=== PATIENT | female | born 1945 | race Caucasian/White ===

== ENCOUNTER → 2016-07-17 | Outpatient (CLI) | payer MEDICARE, OTHER ==
[~2016-07-17] MED LIST: TBR.3OP51 OS
[2016-07-17 11:40] VITALS: BP 125/70
--- NOTE | 2016-07-17 11:40 | Urgent Care T Sheet Gen (E) ---
Intake General Temperature (Fahrenheit): 98.3 Pulse: 68 Blood Pressure Systolic: 125 Blood Pressure Diastolic: 70 Respirations: 20 SPO2: 98 Description of Symptoms patient presents with possible pink eye. Has been exposed by 2 grandkids. Started noticing redness and irritation to the L eye last night. Slight mattering this AM. No cough or cold symptoms. Does have seasonal allergies for which she takes daily meds. R eye is asymptomatic. Respiratory Constitutional Symptoms: No syptoms reported EENTM: Eye pain Blurred vision Eye tearing Respiratory: No symptoms reported All Other Systems Reviewed Remaining Systems: All other systems reviewed with negative findings Physical Exam Physical Exam General Appearance: WD/WN No apparent distress Eyes, Ears, Nose, Throat Ex: PERRL/EOMI (very mild redness and swelling to the L conjunctiva and upper eyelid) TMs normal Other (nose is clear) Departure Urgent Care Impression Impression: Primary Impression: Bacterial conjunctivitis of left eye Departure Disposition: HOME OR SELF-CARE Condition: Stable Referrals: CASSIE PEARCE MD (PCP) Additional Instructions: I have started the patient on Tobramycin drops Warm compress. Has an appt with PCP on Tuesday. Will recheck at that time. Patient understands DC instructions. All questions were answered. Scripts Tobramycin Sulf (Tobrex 0.3% Ophthalmic Solution)5 Ml Soln1 Drop OS QID #1 BTL 1 drop in L eye QID x 5 days Prov:GIOVANY CAPUTO 07/17/16 End of report . GIOVANY CAPUTO Jul 17, 2016 11:40
== END ==
LOC: MHUC 11:23
PROVIDERS: ATTEND Physician Assistant
DX: H10.89 Other conjunctivitis (principal)
CPT/HCPCS: 99212

== ENCOUNTER → 2016-07-20 | Outpatient (CLI) | payer MEDICARE, OTHER ==
[2016-07-20 10:03] LABS: MEAN CORPUSCULAR HEMOGLOBIN 29.8 PG (26.0-34.0); MEAN CORPUSCULAR HGB CONC 33.5 g/dL (31.0-37.0); MEAN CORPUSCULAR VOLUME 89 FL (80-100); MEAN PLATELET VOLUME 10.1 FL (6.0-9.5); WHITE BLOOD COUNT 4.13 10^3uL (4.0-11.0)
[2016-07-20 10:13] LABS: BILIRUBIN,URINE Negative (Negative); CLARITY,URINE Clear; GLUCOSE, URINE (UA) Negative (Negative); LEUKOCYTE ESTERASE ,URINE Negative (Negative); UROBILINOGEN,URINE 0.2 mg/dL (0.2-1.0)
[2016-07-20 10:21] LABS: ALBUMIN 4.5 g/dL (3.4-5.0); ANION GAP 13.7 MEQ/L (3-15); CALCULATED IONIZED CALCIUM 4.3 mg/dL (3.8-4.6); MAGNESIUM* 2.3 mg/dL (1.6-2.3); TOTAL PROTEIN 7.4 g/dL (6.4-8.5)
--- NOTE | 2016-07-20 10:23 | Diagnostic Imaging Report ---
INDICATION: Annual physical exam. DISCUSSION: Two views of the chest were obtained, comparison 07/21/2015. Underlying COPD is stable. No focal consolidation, pleural fluid, or pneumothorax. S-shaped scoliosis of the thoracolumbar spine is stable. Stable normal heart size. IMPRESSION: 1. Stable changes of COPD. Dictated by: Dictated on workstation # [id number]
[2016-07-20 10:33] LABS: PLATELET COUNT 190 10^3uL (150-450)
[2016-07-20 10:36] LABS: BAND NEUTROPHILS % 0 % (0-6); EOSINOPHILS % 10 % (0-4); LYMPHOCYTES # 1.2 #; MONOCYTES # 0.4 #; MONOCYTES % 10 % (3-11); RBC MORPH NORMAL (NORMAL); SEGMENTED NEUTROPHILS % 50 % (51-67); TOTAL CELLS COUNTED 100
[2016-07-20 10:38] LABS: COLOR,URINE Light Yellow
--- NOTE | 2016-07-20 11:14 | Diagnostic Imaging Report ---
INDICATION: Postmenopausal, screening for osteoporosis. COMPARISON: 07/14/2011. DISCUSSION: Bone mineral density measurements of the lumbar spine and distal left third radius were obtained on a [employer] DEXA scanner. Bone mineral density of the lumbar spine measures 1.213 g/cm2 which correlates to a T score of 0.1, normal. Bone mineral density of the distal left third radius measures 0.671 g/cm2 which correlates to a T score of -0.6, normal. No statistically significant interval change in bone mineral density measurements as compared to prior exam. Exam is considered normal by World Health Organization guidelines. Recommend one year followup DEXA scan. IMPRESSION: 1. Normal bone mineral density measurements. 2. No statistically significant interval change. Dictated by: Dictated on workstation # [id number]
== END ==
LOC: RT 09:48
PROVIDERS: ATTEND Family Medicine
DX: I49.8 Other specified cardiac arrhythmias (principal); J20.2 Acute bronchitis due to streptococcus; M81.0 Age-related osteoporosis without current pathological fracture; R79.89 Other specified abnormal findings of blood chemistry; E78.2 Mixed hyperlipidemia; D50.8 Other iron deficiency anemias; N39.0 Urinary tract infection, site not specified; G72.0 Drug-induced myopathy; K71.2 Toxic liver disease with acute hepatitis; E83.42 Hypomagnesemia; E03.4 Atrophy of thyroid (acquired)
CPT/HCPCS: 36415; 71020; 77080; 80053; 80061; 81003; 82306; 82550; 82977; 83735; 84436; 84443; 85025; 93005